=== PATIENT | female | born 1980 | race Caucasian/White ===

== ENCOUNTER → 2023-12-15 07:15 | Outpatient (REF) | payer BC, SELFPAY | LOC: RCS 07:15 | PROVIDERS: ATTENDING PHYSICIAN Internal Medicine Cardiovascular Disease; FAMILY PHYSICIAN Family Medicine | DX: R55 Syncope and collapse (principal); R42 Dizziness and giddiness; R00.2 Palpitations; R00.0 Tachycardia, unspecified | CPT/HCPCS: 93306 ==